=== PATIENT | male | born 1940 | race Caucasian/White ===

== ENCOUNTER 2017-03-03 06:51 | Inpatient (IN) | payer MEDICARE ==
[2017-02-18 10:48] LABS: ASCORBIC ACID (UR NOT ORDER) NEG (NEG); BILIRUBIN, URINE NEGATIVE (NEG); KETONE, URINE NEGATIVE (NEG); LEUKOCYTE ESTERASE(NOT OR LARGE (NEG); WBC (NOT ORDERED) (RFLEX) 2 (0-5)
[2017-02-18 12:05] LABS: BASOPHILS 0.6 %; BASOPHILS ABSOLUTE 0.03 10/3/uL (0.0-0.16); EOSINOPHILS 4.1 %; EOSINOPHILS ABSOLUTE 0.22 10/3/uL (0.0-0.53); HEMATOCRIT 44.7 % (40.0-51.0); HEMOGLOBIN 14.7 g/dL (13.6-17.8); IMMATURE GRANULOCYTES 0.2 %; IMMATURE GRANULOCYTES ABSOLUTE 0.01 10/3/uL (0.0-0.11); LYMPHOCYTES 32.6 %; LYMPHOCYTES ABSOLUTE 1.74 10/3/uL (0.67-4.30); MEAN CORPUS HGB CONC 32.9 g/dL (32.0-36.0); MEAN CORPUSCULAR HEMOGLOB 31.7 pg (26.0-34.0); MEAN PLATELET VOLUME 10.6 fL (9.2-13.0); MONOCYTES 10.5 %; MONOCYTES ABSOLUTE 0.56 10/3/uL (0.21-1.20); NEUTROPHILS ABSOLUTE 2.78 10/3/uL (2.02-8.40); PLATELET COUNT 259 10/3/uL (150-400); RBC DISTRIBUTION WIDTH 13.2 % (12.0-16.0); RED CELL COUNT 4.64 10/6/uL (4.7-6.1); WHITE BLOOD CELLS 5.3 10/3/uL (4.5-10.5)
[2017-02-18 12:08] LABS: MANUAL DIFF NO %; MEAN CORPUSCULAR VOLUME 96.3 fL (80-100); PROTIME (NOT ORD) 13.3 SEC (12.0-14.5)
[2017-02-18 13:24] LABS: A/G RATIO 1.3 (0.7-1.9); ALBUMIN 3.8 G/DL (3.5-5.0); ALKALINE PHOSPHATASE 61 U/L (45-117); CALCIUM, SERUM 9.1 MG/DL (8.5-10.4); CHLORIDE, SERUM 101 MMOL/L (96-112); CO2 (CARBON DIOXIDE) 31 MMOL/L (24-34); CREATININE 0.79 MG/DL (0.70-1.30); GFR AFRICAN AMERICAN 100 ML/MIN (>=60); GFR NON AFRICAN AMERICAN 87 ML/MIN (>=60); GLOBULIN 2.9 G/DL (2.5-4.1); GLUCOSE, SERUM 98 MG/DL (60-99); POTASSIUM, SERUM 4.7 MMOL/L (3.5-5.3); SGOT(AST) 22 U/L (5-40); SGPT(ALT) 28 U/L (5-65); SODIUM, SERUM 139 MMOL/L (135-148); TOTAL BILIRUBIN 1.2 MG/DL (0-1.2); TOTAL PROTEIN 6.7 G/DL (6.0-8.5)
[2017-02-18 13:26] LABS: BUN (BLOOD UREA NITROGEN) 13 MG/DL (6-23)
--- NOTE | ~2017-03-03 | CN ---
Consultation Report [facility] [id number] [place]. [address] NAME: GAVIOTA LLAMAS : 38 STATUS : ADM IN PAT#: [id number] AGE: 76 ADM/REG DATE : 03/03/17 MR#: [id number] REPORT SERV DATE: 03/04/17 DICTATED BY: ANJANA JORDAN JR. DATE: 03/03/17 REPORT STATUS : Draft TRANSCRIBED BY: MODL DATE: 03/03/17 CARDIOLOGY CONSULT DATE OF CONSULTATION: 03/03/2017 NEUROLOGY: Dr. Agosto [place], [place]. REASON FOR CONSULTATION: Regarding postoperative bradycardia. HISTORY OF PRESENT ILLNESS: A 76-year-old white male, was in recovery room after left total hip replacement surgery by Dr. Bermudez today and developed a junctional bradycardia with atrial bigeminy. He was not nauseated at that time and apparently vital signs were stable. He has no history of cardiac disease. He does have a history of hypertension and has had unremarkable cardiac testing including what was referred to as a normal echo earlier this year. He has early onset Parkinson disease diagnosis, treated by Dr. Agosto for Neurology. Currently, with Azilect. He is on Inderal with dosage reduced lately by his PCP. It sounds like this medication was chosen in the past because of a concern about possible migraine headache. He is taking other antihypertensive medications including lisinopril and amlodipine. ALLERGIES: NO KNOWN DRUG ALLERGIES. HOME MEDICATION: Complete list and list of hospital medications reviewed. SOCIAL HISTORY: Active physically. . Supportive family. FAMILY HISTORY: No premature coronary heart disease. PHYSICAL EXAMINATION: VITAL SIGNS: Blood pressure 145/70. Pulse is 55 currently, 38-48 while having bradycardia earlier. Respirations 18. Afebrile. HEENT: No xanthelasma. NECK: No JVD at 30 degrees, no thyromegaly, no carotid bruit. LUNGS: Clear to auscultation and percussion. COR: No thrills, heaves, normal S1, S2. No gallop. No rub. No murmur. ABD: Soft, nontender, no hepatosplenomegaly, no mass. EXT: Without edema or pulse deficit. MS: Back without spine or costovertebral angle tenderness. NEURO: Symmetric findings. Consultation Report [facility] [id number] [place]. [address] NAME: GAVIOTA LLAMAS : 38 STATUS : ADM IN PAT#: [id number] AGE: 76 ADM/REG DATE : 03/03/17 MR#: [id number] REPORT SERV DATE: 03/04/17 DICTATED BY: ANJANA JORDAN JR. DATE: 03/03/17 REPORT STATUS : Draft TRANSCRIBED BY: SHAUN DATE: 03/03/17 DISCUSSION: Transient postoperative junctional bradycardia with atrial bigeminy. Most likely this is due to administration of propranolol with possible postoperative vagal influence. I suppose he is taking the Inderal because of a suspected migraine headache history, but he also has hypertension and is on other medications that did not slow the heart rate. He takes Azilect for his newly diagnosed Parkinson disease. PLAN: Discussed with Dr. Lacy, who will see him in the morning. We will hold his breakfast in the unlikely event that he needs a permanent pacemaker tomorrow. I would advise holding Inderal and reconsidering use in the future perhaps at a lower dosage if needed for migraine headaches, etc. Thank you for this consultation. Group to follow with you. AASHISH/SHAUN Anjana Jordan Jr., M.D. / [id number] CC: Marley Webster MD
--- NOTE | ~2017-03-03 | OP ---
Record Of Operation [facility] [address] [place]. [address] NAME: GAVIOTA LLAMAS : 38 STATUS : ADM IN PAT#: [id number] AGE: 76 ADM/REG DATE : 03/03/17 MR#: [id number] REPORT SERV DATE: 03/03/17 DICTATED BY: DAMIR MIRANDA DATE: 03/03/17 REPORT STATUS : Draft TRANSCRIBED BY: MODL DATE: 03/03/17 DATE OF PROCEDURE: 03/03/2017 PREOPERATIVE DIAGNOSIS: Severe right hip degenerative joint disease. POSTOPERATIVE DIAGNOSIS: Severe right hip degenerative joint disease. PROCEDURE: Uncemented total hip arthroplasty, Tri-Lock. SIDE: Right. LITHOGRAPHIC RETOUCHER APPRENTICE: ANESTHESIA: See chart. SIZE: See chart. ESTIMATED BLOOD LOSS: About 100 mL. INDICATIONS FOR SURGERY: PROCEDURE: The patient was taken to the operating room and placed supine on the table without incident. Anesthetic was induced per the anesthesiologist. A Lu catheter was placed by the nurse in the standard sterile technique. The correct side for the procedure was identified by preoperative markings and matched with the consent form. All personnel in the room were in agreement regarding the procedure, patient, and side. The patient was then carefully positioned and carefully padded and prepped and draped in the normal sterile fashion. The patient received prophylactic preoperative antibiotics at the appropriate time. The preoperative x-ray was brought up on the monitor. Again, this was reviewed with the staff in the room. According with the preoperative plan, and angled, an anterolateral incision was made centered over the trochanter extending from proximal posterior to distal anterior. Electrocautery was used to maintain meticulous hemostasis. The IT band was split in line with its fibers. A Charnley retractor was placed over saline moistened laps. A standard anterolateral approach to the hip was carried out dissecting in line with the vastus medialis fibers lifting the inferior 20% of the vastus medialis, proximally the interior 20% of the gluteus medius and gluteus minimus tendons off the anterior capsule. Periosteal elevator was used to elevate soft tissue gently directly off the proximal anterior femoral bone. Appropriate retractors were carefully placed. Complete anterior capsulectomy was performed. The hip was then carefully dislocated with a combination of traction maneuver by the research study assistant and scooping the ball out of the socket with a Hohmann. A femoral neck osteotomy was marked according to what had been preoperatively planned with a broach as a template. The distance for the femoral neck osteotomy was measured with a ruler. A femoral neck osteotomy was made with an oscillating saw under appropriate retraction. Meticulous hemostasis was again obtained. The leg was then brought up out of the anterior bag and Record Of Operation [facility] [address] [place]. [address] NAME: GAVIOTA LLAMAS : 38 STATUS : ADM IN PAT#: [id number] AGE: 76 ADM/REG DATE : 03/03/17 MR#: [id number] REPORT SERV DATE: 03/03/17 DICTATED BY: DAMIR MIRANDA DATE: 03/03/17 REPORT STATUS : Draft TRANSCRIBED BY: SHAUN DATE: 03/03/17 positioned with the lower extremity in external rotation and slight flexion. Acetabular retractors were placed carefully palpating to be sure that they were directly on the bone. The acetabular labrum was excised with electrocautery and rongeur. Pulvinar fat was removed with a large curette and rongeur and again meticulous hemostasis was obtained. Sequential reamers were used in the acetabulum to 1 mm. less than the final size which was chosen. This was felt to give excellent interference fit. The acetabular fossa was then copiously irrigated with pulsatile lavage and actual acetabular component was placed and impacted and checked to make sure it was down snug. The overall alignment was checked. The acetabular director food safety was then removed. Screws were placed in the standard fashion. A drill, depth gauge and self tapping screw placement taking care not to plunge as the drill holes were carefully placed. A trial liner was then placed and attention directed back to the proximal femur. The leg was placed back into the anterior bag. The proximal femur was prepared using a box chisel following by a T-handled reamer to determine the intramedullary alignment. This was followed by sequential broaches up to the final broach. Once it was seated in the appropriate position, a Calcar reamer was used to plane the proximal femur. Trial reduction was then done with a trial prosthetic ball and neck. A straight edge was used to compare the tip of the trochanter to center of the ball relationship to what had been noted on the preoperative x-ray. Careful reduction was then done of the total hip. Palpation was done to ascertain and compare leg lengths by palpating the nonoperative leg and also by checking soft tissue tension. The stability of the hip was checked in full extension with full external rotation and in full flexion with adduction, flexion and internal rotation. The hip was then redislocated with a bone hook. The femoral trial and femoral broach were removed. The acetabulum was then prepared under appropriate retraction by removing the trial liner. A central hole eliminator was placed and tightened. The shell was irrigated out. The actual insert was placed and impacted and then checked to be sure it was down snug with a joker. The leg was again positioned in the bag. The proximal femur exposed, irrigated and the actual thermal prosthesis was taken from the distribution sales representative and impacted. Once it was down, the trunnion was cleansed with a wet and dry lap and the prosthetic thermal head was placed and impacted and checked to be sure it was down snug. The acetabulum was irrigated and reduction was obtained. Again, we checked soft tissue tension, leg length and stability as described above. The hip was closed in a layered fashion with a 5 mm. Mersilene tape placed through a single drill hole in the proximal anterior/superior trochanter reattaching the gluteus medius and minimus fibers. The vastus lateralis, gluteus medius, and gluteus minimus were then closed in a sleeve. Drain was placed between the vastus and the IT band exiting distally anteriorly. The IT band was closed. Subcutaneous closure and skin closure were then obtained. A sterile dressing was applied. The patient was carefully positioned into a supine position and then awakened. The patient was then carefully transferred to the stretcher to be returned to the postoperative care unit without incident. COMPLICATION: None. SPECIMENS: Right femoral head. Record Of Operation [facility] [address] [place]. [address] NAME: GAVIOTA LLAMAS : 38 STATUS : ADM IN [facility]#: [id number] AGE: 76 ADM/REG DATE : 03/03/17 MR#: [id number] REPORT SERV DATE: 03/03/17 DICTATED BY: DAMIR MIRANDA DATE: 03/03/17 REPORT STATUS : Draft TRANSCRIBED BY: MODL DATE: 03/03/17 WTB/MODL Austyn Miranda M.D. / [id number] CC: Marley Webster MD
[~2017-03-03 06:51] MED LIST: ARNUITY ELLIP200 MCG INH; ASAB PO; AZILECT0.5 MG PO; INDE60 PO; NORV5 PO; PRILO PO; PRIN20 PO; PROSCAR5 PO
[2017-03-03 16:30] LABS: BUN (BLOOD UREA NITROGEN) 15 MG/DL (6-23); CALCIUM, SERUM 8.9 MG/DL (8.5-10.4); CHLORIDE, SERUM 102 MMOL/L (96-112); CO2 (CARBON DIOXIDE) 30 MMOL/L (24-34); CREATININE 0.85 MG/DL (0.70-1.30); GFR AFRICAN AMERICAN 97 ML/MIN (>=60); GFR NON AFRICAN AMERICAN 84 ML/MIN (>=60); GLUCOSE, SERUM 132 MG/DL (60-99); POTASSIUM, SERUM 4.5 MMOL/L (3.5-5.3); SODIUM, SERUM 138 MMOL/L (135-148); TROPONIN I <0.02 NG/ML (<0.05)
[2017-03-04 07:20] LABS: HEMOGLOBIN 12.9 g/dL (13.6-17.8); INTERNATIONAL NORMAL RATI 1.1 UNITS (-); PROTIME (NOT ORD) 14.1 SEC (12.0-14.5)
[2017-03-04 07:26] LABS: BUN (BLOOD UREA NITROGEN) 15 MG/DL (6-23); CALCIUM, SERUM 8.7 MG/DL (8.5-10.4); CHLORIDE, SERUM 96 MMOL/L (96-112); CO2 (CARBON DIOXIDE) 29 MMOL/L (24-34); CREATININE 0.77 MG/DL (0.70-1.30); GFR AFRICAN AMERICAN 101 ML/MIN (>=60); GFR NON AFRICAN AMERICAN 88 ML/MIN (>=60); GLUCOSE, SERUM 110 MG/DL (60-99); POTASSIUM, SERUM 4.8 MMOL/L (3.5-5.3); SODIUM, SERUM 133 MMOL/L (135-148)
[2017-03-04 07:28] LABS: HEMATOCRIT 39.4 % (40.0-51.0)
[2017-03-05 07:15] LABS: HEMATOCRIT 37.1 % (40.0-51.0); HEMOGLOBIN 12.4 g/dL (13.6-17.8)
[2017-03-05 07:21] LABS: INTERNATIONAL NORMAL RATI 1.3 UNITS (-); PROTIME (NOT ORD) 16.2 SEC (12.0-14.5)
[2017-03-05] MEDS ORDERED: FESO4 PO (11:41)
[2017-03-05] MEDS ORDERED: D.O.S.100 MG PO (11:41)
[2017-03-05] MEDS ORDERED: MULTIVITAMI1 PO (11:43)
[2017-03-05] MEDS ORDERED: C5 (11:48)
== END 2017-03-05 15:08 | disposition home or self-care (01) | DRG 470 ==
LOC: SDC/OF 06:51 → 1SO 15:06
PROVIDERS: Internal Medicine; Internal Medicine Cardiovascular Disease; Specialist
PROC: 0SR902A Replacement of Right Hip Joint with Metal on Polyethylene Synthetic Substitute, Uncemented, Open Approach (ICD-10-PCS; principal; 2017-03-03 09:00)
DX: M16.0 Bilateral primary osteoarthritis of hip (principal); I97.89 Other postprocedural complications and disorders of the circulatory system, not elsewhere classified; R00.1 Bradycardia, unspecified; G20 Parkinson's disease; M06.9 Rheumatoid arthritis, unspecified; I10 Essential (primary) hypertension; J45.909 Unspecified asthma, uncomplicated; G47.33 Obstructive sleep apnea (adult) (pediatric); K21.9 Gastro-esophageal reflux disease without esophagitis; G43.909 Migraine, unspecified, not intractable, without status migrainosus; E78.00 Pure hypercholesterolemia, unspecified; Y83.8 Other surgical procedures as the cause of abnormal reaction of the patient, or of later complication, without mention of misadventure at the time of the procedure; Z79.82 Long term (current) use of aspirin; Z79.899 Other long term (current) drug therapy
CPT/HCPCS: 36415; 71020; 72170; 80048; 80053; 81001; 83735; 84484; 85014; 85018; 85025; 85610; 86850; 86900; 86901; 87086; 87641; 88304; 88305; 88311; 93005; 97110-GP; 97116-GP; 97161-GP; 97165-GO; A9270-GY; C1713; C1776; G8978-CK-GP; G8979-CI-GP; J0461; J0690; J1170; J1885; J2250; J2270; J2405; J2710; J2795; J3010